=== PATIENT | female | born 1970 | race Caucasian/White ===

== ENCOUNTER → 2016-07-26 | Outpatient (CLI) | payer OTHER | LOC: FIMAGING 10:23 | PROVIDERS: ATTEND Midwife | DX: N83.201 Unspecified ovarian cyst, right side (principal); N92.6 Irregular menstruation, unspecified | CPT/HCPCS: 76856-PO ==

== ENCOUNTER 2016-08-22 13:17 | Emergency (ER) | payer OTHER ==
[2016-08-22] MEDS ORDERED: ASPIRIN 81 MG CHEWABLE TAB PO ONE (14:06)
--- NOTE | 2016-08-22 14:12 | CPEKG ---
Heart Rate: 80 RR Interval: 750 P-R Interval: 168 QRSD Interval: 84 QT Interval: 368 QTC Interval: 425 P Cannon Ball: 59 QRS Cannon Ball: 39 T Wave Cannon Ball: 46 EKG Severity - BORDERLINE ECG - EKG Impression: SINUS RHYTHM EKG Impression: PROBABLE LEFT ATRIAL ABNORMALITY Electronically Signed By: Ro Mejia 23-Aug-2016 00:27:41
[2016-08-22 14:22] VITALS: RESP 16; O2SAT 96
[2016-08-22 14:35] LABS: % IMMATURE GRANULYOCYTES 0.3 % (0.0-1.1); ABSOLUTE IMMATURE GRANULOCYTES 0.02 10^3/uL (0.00-0.10); ADD DIFF? NO; ADD MORPH? NO; ADD SCAN? NO; ATYPICAL LYMPHOCYTE FLAG 30 (0-99); FRAGMENT RBC FLAG 0 (0-99); HEMATOCRIT 32.9 % (38.0-47.0); HEMOGLOBIN 10.7 g/dL (12.6-16.3); LEFT SHIFT FLG 20 (0-99); LIPEMIA HEMOLYSIS FLAG 80 (0-99); MEAN CELL HEMOGLOBIN 28.1 pg (27.9-34.1); MEAN CELL HEMOGLOBIN CONCENTR. 32.5 g/dL (32.4-36.7); MEAN CELL VOLUME 86.4 fL (81.5-99.8); MEAN PLATELET VOLUME 9.4 fL (8.7-11.7); PLATELET CLUMPS FLAG 0 (0-99); PLATELET COUNT 292 10^3/uL (150-400); RED BLOOD CELL COUNT 3.81 10^6/uL (4.18-5.33); RED CELL DISTRIBUTION WIDTH 15.6 % (11.5-15.2)
[2016-08-22 14:47] LABS: ANION GAP 13 mEq/L (8-16); CALCIUM 9.3 mg/dL (8.5-10.4); CARBON DIOXIDE 22 mEq/l (22-31); CHLORIDE 107 mEq/L (97-110); CREATININE 1.2 mg/dL (0.6-1.0); GLOMERULAR FILTRATION RATE 49; GLUCOSE 75 mg/dL (70-100); POTASSIUM 4.2 mEq/L (3.5-5.2); SODIUM 142 mEq/L (134-144)
[2016-08-22 14:59] LABS: CREATINE KINASE-MB FRACTION 1.11 ng/mL (0-3.19); TROPONIN I < 0.012 ng/mL (0-0.034)
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
[2016-08-22 16:43] VITALS: BP 154/98; PULSE 76; TEMP 98.4
== END 2016-08-22 16:45 | disposition home or self-care (01) ==
DX: R07.89 Other chest pain (principal)

== ENCOUNTER → 2017-01-20 | Outpatient (CLI) | payer OTHER | LOC: BMCIMAGING 13:57 | PROVIDERS: ATTEND Midwife | DX: N83.201 Unspecified ovarian cyst, right side (principal) ==

== ENCOUNTER → 2017-01-28 | Outpatient (CLI) | payer OTHER | LOC: FIMAGING 07:35 | PROVIDERS: ATTEND Family Medicine | DX: Z12.31 Encounter for screening mammogram for malignant neoplasm of breast (principal); Z80.3 Family history of malignant neoplasm of breast | CPT/HCPCS: G0202 ==

== ENCOUNTER 2017-05-28 11:03 | Observation (INO) | payer OTHER ==
[~2017-05-28 11:03] MED LIST: ACETAMINOPHEN 500 MG TAB PO ONE; PHENAZOPYRIDINE HCL 200 MG TAB PO ONE
[2017-05-28] MEDS ORDERED: ACETAMINOPHEN 500 MG TAB PO ONE (11:36)
[2017-05-28] MEDS ORDERED: PHENAZOPYRIDINE HCL 200 MG TAB PO ONE (11:36)
[2017-05-28] MEDS ORDERED: ceFAZolin 2 GM/SWFI 2 GM/20 ML SYR IVP ONE (11:36)
[2017-05-28] MEDS ORDERED: GABAPENTIN 400 MG CAP PO ONE (11:36)
--- NOTE | 2017-05-28 12:08 | PDHPUP ---
History & Physical Update H&P update statement: This history and physical update is based on an assessment of the patient which was completed after admission or registration (within 24 hours), but prior to the surgery/procedure. H&P update: H&P reviewed & patient examined, no change in patient's condition since H&P completed
[2017-05-28] MEDS ORDERED: LR 1,000 ML IV ONE (12:24)
[2017-05-28] MEDS ORDERED: BUPIVACAINE/EPI 0.5% 30 ML SDV ONE (12:33)
[2017-05-28] MEDS ORDERED: MIDAZOLAM 2 MG/2 ML VIAL ONE (12:40)
[2017-05-28] MEDS ORDERED: PROPOFOL/EMULSION 500 MG/50 ML BOTTLE IV ONE (12:41)
[2017-05-28] MEDS ORDERED: fentaNYL 100 MCG/2 ML INJ ONE ×3 (12:41→15:24)
[2017-05-28] MEDS ORDERED: DEXAMETHASONE 4 MG/ML VIAL ONE (13:01)
[2017-05-28] MEDS ORDERED: ONDANSETRON 4 MG/2 ML VIAL ONE (13:01)
[2017-05-28] MEDS ORDERED: ROCURONIUM 50 MG/5 ML VIAL ONE ×2 (13:01→13:30)
[2017-05-28] MEDS ORDERED: KETOROLAC 30 MG/1 ML SDV ONE (13:01)
[2017-05-28] MEDS ORDERED: SUGAMMADEX SODIUM 200 MG/2 ML VIAL IVP ONE (13:01)
[2017-05-28] MEDS ORDERED: RANITIDINE 50 MG/2 ML VIAL ONE (13:01)
[2017-05-28] MEDS ORDERED: METOCLOPRAMIDE 10 MG/2 ML VIAL ONE (13:01)
[2017-05-28] MEDS ORDERED: LIDOCAINE 2% 5 ML SDV ONE (13:01)
--- NOTE | 2017-05-28 13:06 | PDANEPAE ---
ANE Past Medical History - Cardiovascular History Hx Hypertension: Yes Hx Arrhythmias: No Hx Chest Pain: No Hx Coronary Artery / Peripheral Vascular Disease: No Hx CHF / Valvular Disease: No Hx Palpitations: No - Pulmonary History Hx COPD: No Hx Asthma/Reactive Airway Disease: No Hx Recent Upper Respiratory Infection: No Hx Oxygen in Use at Home: No Hx Sleep Apnea: No Sleep Apnea Screening Result - Last Documented: Negative - Neurologic History Hx Cerebrovascular Accident: No Hx Seizures: No Hx Dementia: No - Endocrine History Hx Diabetes: No - Renal History Hx Renal Disorders: No - Liver History Hx Hepatic Disorders: No - Neurological & Psychiatric Hx Hx Neurological and Psychiatric Disorders: Yes Neurological / Psychiatric History Comment: sciatica, numbness right foot and pain. depression - Cancer History Hx Cancer: No - Congenital Disorder History Hx Congenital Disorders: No - GI History Hx Gastrointestinal Disorders: Yes Gastrointestinal History Comment: IBS with diarrhea - Other Health History Other Health History: none - Chronic Pain History Chronic Pain: Yes (lower back right leg, left knee) - Surgical History Prior Surgeries: 4 back surgeries. 5 knee surgeries ANE Review of Systems Review of Systems: - Exercise capacity METS (RN): 4 METS ANE Patient History - Allergies Allergies/Adverse Reactions: prednisone Allergy (Mild, Verified 05/14/17 14:34) Rash pregabalin [From Lyrica] Allergy (Mild, Verified 05/14/17 14:34) n/v - Home Medications Home Medications: oxyCODONE/APAP 5/325 [Percocet 5/325 (*)] 1 tab PO Q2D@21 PRN 08/22/16 [Last Taken 05/26/17] Amitriptyline HCl [Elavil 10 mg (*)] 40 mg PO HS 05/09/17 [Last Taken 05/27/17 20:00] Calcium Carbonate [Oyster Shell Calcium 500 mg (*)] 1,000 mg PO HS 05/09/17 [ Last Taken 05/21/17] Cyclobenzaprine [Flexeril 10 MG (*)] 10 mg PO Q2D@21 PRN 05/09/17 [Last Taken ] Deplin 15mg 15 mg PO DAILY 05/09/17 [Last Taken 05/27/17 08:00] Ibuprofen [Motrin (*)] 800 mg PO QID PRN 05/09/17 [Last Taken 05/27/17 11:59] Lisinopril [Zestril 10 mg (*)] 10 mg PO DAILY 05/09/17 [Last Taken 05/27/17 06: 00] Metoprolol Succinate Xr [Toprol Xl 25 mg (*)] 25 mg PO DAILY 05/09/17 [Last Taken 05/27/17 06:00] Multivitamins [Multivitamin (*)] 1 each PO DAILY 05/09/17 [Last Taken 05/21/17] [place]-3 Fatty Acids [Fish Oil 1000 mg (*)] 4,000 mg PO DAILY 05/09/17 [Last Taken 05/21/17] - NPO status NPO Since - Liquids (Date): 05/28/17 NPO Since - Liquids (Time): 09:10 NPO Since - Solids (Date): 05/27/17 NPO Since - Solids (Time): 11:59 - Smoking Hx Smoking Status: Never smoked - Family Anes Hx Family Hx Anesthesia Complications: none ANE Labs/Vital Signs - Vital Signs Blood Pressure: 136/87 Heart Rate: 91 Respiratory Rate: 16 O2 Sat (%): 99 Height: 167.64 cm Weight: 87.543 kg ANE Physical Exam - Airway Neck exam: FROM Mallampati Score: Class 2 Mouth exam: normal dental/mouth exam, poor dentition - Pulmonary Pulmonary: no respiratory distress, no rales or rhonchi, clear to auscultation - Cardiovascular Cardiovascular: regular rate and rhythym, no murmur, rub, or gallop, systolic murmur - ASA Status ASA Status: II ANE Anesthesia Plan Anesthesia Plan: general endotracheal anesthesia
[2017-05-28] MEDS ORDERED: ONDANSETRON 4 MG/2 ML VIAL IVP PRN (13:07)
[2017-05-28] MEDS ORDERED: LR 500 ML IV PRN (13:07)
[2017-05-28] MEDS ORDERED: PROMETHAZINE HCL 25 MG/ML INJ IVP PRN (13:07)
[2017-05-28] MEDS ORDERED: ALBUTEROL 3 ML DEYVIAL IH PRN (13:07)
[2017-05-28] MEDS ORDERED: NALOXONE HCL 0.4 MG/ML INJ IVP PRN (13:07)
[2017-05-28] MEDS ORDERED: MEPERIDINE 25 MG/ML SYR IVP PRN (13:07)
[2017-05-28] MEDS ORDERED: DEXAMETHASONE 4 MG/ML VIAL IVP PRN (13:07)
[2017-05-28] MEDS ORDERED: METOCLOPRAMIDE 10 MG/2 ML VIAL IVP PRN (13:07)
[2017-05-28] MEDS ORDERED: METOPROLOL TARTRATE 5 MG/5 ML INJ ONE (13:17)
[2017-05-28] MEDS ORDERED: ENALAPRILAT DIHYDRATE 1.25 MG/ML VIAL ONE (13:17)
[2017-05-28] MEDS ORDERED: PROPOFOL 200 MG/20 ML VIAL ONE (13:30)
[2017-05-28] MEDS ORDERED: LABETALOL HCL 5 MG/ML 20 ML MDV ONE (13:37)
[2017-05-28] MEDS ORDERED: ONDANSETRON DISINTEGRATING 4 MG TAB PO PRN (14:28)
--- NOTE | 2017-05-28 14:28 | POSTOPPROG ---
Post Op Note Date of Operation: 05/28/17 Surgeon: Shaun Crandall Copper Roller Handler Printing: Brynn Alcantar Anesthesiologist: Altagracia Anesthesia: GET(General Endotracheal) Pre-op Diagnosis: Menorrhagia, dysmenorrhea, endometriosis Post-op Diagnosis: same Procedure: Robotic hyst/BSO, US lig colpopexy, excise endo, cysto Findings: Endo post culdesac Inf/Abcess present in the surg proc area at time of surgery?: No EBL: Minimal Complications: None Specimen(s): uterus, bilat tubes and ovaries, peritoneum with endo
[2017-05-28] MEDS ORDERED: LR 1,000 ML IV SCH (14:30)
[2017-05-28] MEDS: fentaNYL 100 MCG/2 ML INJ IVP PRN ×5 (14:36→16:12)
[2017-05-28] MEDS ORDERED: DIAZEPAM 5 MG/ML 1 ML SYR ONE (14:38)
[2017-05-28] MEDS: DIAZEPAM 5 MG/ML 1 ML SYR IVP PRN ×2 (14:39→15:01)
--- NOTE | 2017-05-28 14:41 | POSTANESTH ---
Post Anesthetic Evaluation Cardiovascular Status: Normal, Stable Respiratory Status: Normal, Stable Level of Consciousness/Mental Status: Can Participate in Eval Pain Control: Adequate, Prn Tx Ordered Nausea/Vomiting Control: Adequate, Prn Tx Ordered Complications Possibly Related to Anesthesia: None Noted
--- NOTE | 2017-05-28 15:06 | GOP ---
[f rep st] OPERATIVE REPORT DATE OF OPERATION: 05/28/2017 SURGEON: Shaun Crandall MD FISH HATCHERY SUPERINTENDENT: Brynn Alcantar CFA. ANESTHESIA: General. PREOPERATIVE DIAGNOSIS: 1. Menorrhagia. 2. Dysmenorrhea. 3. Endometriosis. 4. Uterine prolapse. POSTOPERATIVE DIAGNOSIS: 1. Menorrhagia. 2. Dysmenorrhea. 3. Endometriosis. 4. Uterine prolapse. PROCEDURE PERFORMED: 1. Robotic-assisted total laparoscopic hysterectomy, bilateral salpingo-oophorectomy. 2. Bilateral ureterolysis. 3. Excision of endometriosis and posterior cul-de-sac and bilateral ovarian fossae. 4. Uterosacral ligament colpopexy. 5. Cystoscopy. FINDINGS: SPECIMENS: Uterus, tubes, ovaries, and endometriosis. ESTIMATED BLOOD LOSS: Scant. DESCRIPTION OF PROCEDURE: The patient was taken to the operating room where she was identified. Gen eral anesthesia was administered and found to be adequate. She was placed in the lithotomy position and prepared and draped in normal sterile fashion. A VCare uterine manipulator was placed into the e ndometrial cavity and sutured to the cervix. A Salas catheter was then placed. An infraumbilical incision was made with a scalpel. The Veress needle with CO2 gas flowing was advan bruce into the peritoneal cavity. The abdomen was then insufflated with carbon dioxide gas. The 12 mm trocar followed by the laparoscope were then inserted. The abdomen was unremarkable. Two lateral p orts were placed on the right and 1 on the left under direct visualization. She then was placed in T rendelenburg position and the da Megan robot docked on the left side. The instruments were then brou ght into the abdominal cavity under direct visualization. She was found to have endometriosis in the posterior cul-de-sac and both ovarian fossae. The left round ligament was divided. The anterior le af of the broad ligament was incised to the bifurcation of the left common iliac vessels. A windows was created in the medial leaf anterior to the ureter, which was easily visualized. The infundibulop elvic vessels were then cauterized and transected. The anterior lip of the broad ligament was then i ncised over the left uterine vessels and across the cervix. The bladder was gently dissected off the cervix and upper vagina. The left uterine vasculature was then cauterized and transected. The exac t same procedure was performed on the patient's right side. A circumferential colpotomy incision was then made with the hot cecil and the specimen removed through the vagina. The posterior cul-de-sac peritoneum from the distal rectum up to the vaginal cuff and laterally to include both uterosacral l igaments, was completely excised and removed through the vagina. A bilateral ureterolysis was requir ed to remove the endometriosis and the ovarian fossae. The peritoneum at the pelvic brims were incis ed. The ureters were gently dissected free from the pelvic brim all the way down to the bladder. On ce this was accomplished the overlying peritoneum and endometriosis was completely excised and also r emoved through the vagina. The vaginal cuff was then closed with a running suture of 0 V-Loc 180. A bilateral uterosacral ligament colpopexy was performed by attaching the lateral aspects of the vagin al cuff to the ipsilateral uterosacral ligaments near the sacrospinous ligament coccygeal complex. T he pelvis was then irrigated with sterile saline, and hemostasis was present. The robot was then und ocked. The fascia was closed with 0 Vicryl, skin with 4-0 Monocryl and surgical adhesive. Cystoscopy was then performed. Both ureters had vigorous jets of urine. There was no evidence of bl adder nor urethral injury seen. No pathology nor sutures were seen within the bladder. Anesthesia w as reversed. The patient taken the PACU awake, in stable condition. COMPLICATIONS: None. DISPOSITION: Patient stable to PACU. /[id number]/MODL
[2017-05-28] MEDS ORDERED: HYDROmorphONE/DILAUDID 2 MG/ML INJ ONE (15:31)
[2017-05-28] MEDS: HYDROmorphONE/DILAUDID 2 MG/ML INJ IVP PRN ×4 (15:52→22:05)
[2017-05-28] MEDS: OXYCODONE/APAP 5/325 TAB PO PRN (18:04)
[2017-05-28] MEDS: ONDANSETRON 4 MG/2 ML VIAL IVP PRN ×2 (18:44→22:49)
[2017-05-28] MEDS: KETOROLAC 30 MG/1 ML SDV IVP SCH (18:52)
[2017-05-28] MEDS: PROMETHAZINE HCL 25 MG/ML INJ IVP PRN (19:51)
[2017-05-28] MEDS ORDERED: AMITRIPTYLINE HCL 10 MG TAB PO SCH (21:00)
[2017-05-28] MEDS ORDERED: CYCLOBENZAPRINE 10 MG TAB PO PRN (21:00)
[2017-05-28] MEDS: SIMETHICONE 80 MG TAB CHEW PO SCH (21:58)
[2017-05-28] MEDS: DOCUSATE SODIUM 100 MG CAP PO SCH (22:56)
[2017-05-29] MEDS: HYDROmorphONE/DILAUDID 2 MG/ML INJ IVP PRN ×2 (00:11→02:12)
[2017-05-29] MEDS: SIMETHICONE 80 MG TAB CHEW PO SCH ×2 (00:28→10:57)
[2017-05-29] MEDS: KETOROLAC 30 MG/1 ML SDV IVP SCH ×3 (00:32→11:32)
[2017-05-29] MEDS: PROMETHAZINE HCL 25 MG/ML INJ IVP PRN (02:11)
[2017-05-29] MEDS: OXYCODONE/APAP 5/325 TAB PO PRN ×3 (04:38→10:06)
[2017-05-29 08:15] VITALS: BP 115/76
[2017-05-29] MEDS: DOCUSATE SODIUM 100 MG CAP PO SCH (08:20)
[2017-05-29] MEDS ORDERED: DEPLIN 15 MG PO SCH (09:00)
[2017-05-29] MEDS ORDERED: METOPROLOL SUCCINATE XR 25 MG TAB PO SCH (09:00)
[2017-05-29] MEDS ORDERED: LISINOPRIL 10 MG TAB PO SCH (09:00)
--- NOTE | 2017-05-29 12:55 | GDS ---
[f rep st] DISCHARGE SUMMARY DISCHARGE DIAGNOSES: 1. Dysmenorrhea. 2. Pelvic pain. 3. Endometriosis. PROCEDURES: 1. Robotic-assisted total laparoscopic hysterectomy and bilateral salpingo-oophorectomy. 2. Bilateral uterosacral ligament colpopexy. 3. Bilateral ureterolysis. 4. Excision of endometriosis. 5. Cystoscopy. HOSPITAL COURSE: The patient is a 47-year-old woman with painful menses and pelvic pain. She was ta sonia to the operating room on 05/28/2017, where she underwent the above-mentioned procedures without c omplications. Her postoperative course was relatively uneventful. The morning after surgery, she was ambulating, v oiding, and tolerating a general diet. She was discharged home on postoperative day #1 in good condi tion. Medications included Percocet and ibuprofen for pain. She had no complaints. Her abdomen was benign. Her hemoglobin was stable. She was discharged home with Percocet and ibuprofen for pain. She is to follow up in the office 2 weeks after discharge. /[id number]/MODL
== END 2017-05-29 12:15 | disposition home or self-care (01) ==
LOC: F3E 11:03 → FOB 16:00
PROVIDERS: ADMIT Obstetrics & Gynecology; ATTEND Obstetrics & Gynecology
DX: N80.3 Endometriosis of pelvic peritoneum (principal); N94.6 Dysmenorrhea, unspecified; N81.2 Incomplete uterovaginal prolapse; M54.41 Lumbago with sciatica, right side; F32.9 Major depressive disorder, single episode, unspecified
CPT/HCPCS: 57282; 58571; G0378; J0690; J1100; J1170; J1885; J2250; J2270; J2405; J2550; J2704; J2765; J2780; J3010; J3360

== ENCOUNTER → 2018-01-18 | Outpatient (CLI) | payer OTHER | LOC: SBRMNEURO 21:50 | PROVIDERS: ATTEND Student in an Organized Health Care Education/Training Program | DX: G47.33 Obstructive sleep apnea (adult) (pediatric) (principal) ==

== ENCOUNTER → 2018-01-29 | Outpatient (CLI) | payer OTHER | LOC: FIMAGING 10:55 | PROVIDERS: ATTEND Midwife | DX: Z12.31 Encounter for screening mammogram for malignant neoplasm of breast (principal); Z80.3 Family history of malignant neoplasm of breast ==

== ENCOUNTER 2018-04-15 23:03 | Emergency (ER) | payer OTHER ==
[2018-04-15] MEDS ORDERED: ONDANSETRON 4 MG/2 ML VIAL IVP ONE (23:35)
[2018-04-15] MEDS ORDERED: NS 1,000 ML IV ONE (23:35)
--- NOTE | 2018-04-15 23:39 | EDPHY ---
H & P Stated Complaint: lower abd pain with vomiting and diarrhea Time Seen by Provider: 04/15/18 23:23 HPI/ROS: Chief Complaint: Nausea, vomiting, diarrhea, abdominal pain HPI: 47-year-old woman who is been having persistent vomiting since she had a trip to [place] at the end of February. She had been on Chloroquin for malaria prophylaxis. She has seen a back order clerk who is performed an upper GI and found that she was not having complete gastric emptying but no other findings. She is also followed up with Infectious Disease who is attributing her vomiting to the chloroquine. He told her that this could persist for several weeks while it is still in her system.. Last took chloroquin 4 weeks ago. Vomiting is persisted. Tonight she developed worsening nausea vomiting, multiple episodes which began with vomiting what appeared to be her entire lunch and then multiple suicide bilious vomiting. She has also had multiple episodes of diarrhea. No blood or coffee-grounds in her emesis, no dark tarry stools. Patient has also had associated lower bilateral abdominal pain, at worst 9/10, currently 6/10. No fevers or chills. No shortness of breath. There are no aggravating or alleviating factors. She has not had any abdominal pain associated with prior to this. ROS: 10 systems were reviewed and were negative except those elements noted in the HPI. PMH: Hypertension, hysterectomy, time to time a back surgery, knee surgery Social History: No smoking, no alcohol, no recreational drug use Family History: non-contributory Physical Exam: Gen: Awake, Alert, No Distress HEENT: Nose: no rhinorrhea Eyes: PERRLA, EOMI Mouth: Moist mucosa Neck: Supple, no JVD Chest: nontender, lungs clear to auscultation Heart: S1, S2 normal, no murmur Abd: Soft, diffuse abdominal tenderness, no guarding Back: no CVA tenderness, no midline tenderness Ext: no edema, non-tender Skin: no rash Neuro: CN II-XII intact, Sensation grossly intact, Strength 5/5 in bilateral upper and lower extremities - Personal History LMP (Females 10-55): Hysterectomy Current Tetanus/Diphtheria Vaccine: Yes Current Tetanus Diphtheria and Acellular Pertussis (TDAP): Yes - Medical/Surgical History Hx Asthma: No Hx Chronic Respiratory Disease: No Hx Diabetes: No Hx Cardiac Disease: No Hx Renal Disease: No Hx Cirrhosis: No Hx Alcoholism: No Hx HIV/AIDS: No Hx Splenectomy or Spleen Trauma: No Other PMH: chronic back pain, surgs on back, hysterectomy, bilat knee, c- sections, HTN - Social History Smoking Status: Never smoked Constitutional: Initial Vital Signs Temperature (C) 36.5 C 04/15/18 23:05 Heart Rate 102 H 04/15/18 23:05 Respiratory Rate 16 04/15/18 23:05 Blood Pressure 122/80 H 04/15/18 23:05 O2 Sat (%) 98 04/15/18 23:05 O2 Delivery Mode Room Air Allergies/Adverse Reactions: prednisone Allergy (Mild, Verified 04/15/18 23:09) Rash pregabalin [From Lyrica] Allergy (Mild, Verified 04/15/18 23:09) n/v Home Medications: Medication Instructions Recorded oxyCODONE/APAP 5/325 [Percocet 1 tab PO Q2D@21 PRN 08/22/16 5/325 (*)] Cyclobenzaprine [Flexeril 10 MG 10 mg PO Q2D@21 PRN 05/09/17 (*)] Lisinopril [Zestril 10 mg (*)] 10 mg PO DAILY 05/09/17 Multivitamins [Multivitamin (*)] 1 each PO DAILY 05/09/17 Leslie-3 Fatty Acids [Fish Oil 1000 4,000 mg PO DAILY 05/09/17 mg (*)] oxyCODONE/APAP 5/325 [Percocet 1 - 2 tab PO Q4HRS PRN #20 tab 05/29/17 5/325 (*)] Belbuca 04/15/18 Cardizem 04/15/18 Estradiol 04/15/18 Metoclopramide 04/15/18 OXcarbazepine 04/15/18 Stool Softener 04/15/18 Ciprofloxacin [Cipro] 500 mg PO BID #14 tab 04/16/18 Medical Decision Making - Diagnostics Imaging Results: CT scan of the abdomen pelvis shows wall thickening with adjacent fat stranding throughout the colon concerning for an infectious or inflammatory colitis. No evidence of a bowel obstruction. Study interpreted by Dr. Parikh, draft Radiology. ED Course/Re-evaluation: 47-year-old woman presenting with nausea vomiting and diarrhea and abdominal pain. CT scan consistent with colitis. She has had persistent nausea vomiting for the last several weeks since her trip is. I have sent a stool culture. Patient is improved after IV fluids and medicines here. She does not wish to stay in the hospital. Given her symptoms, travel and persistent nausea she has had over the last few weeks I am inclined to treat her for her colitis with ciprofloxacin. Will give her 1st dose here. She will certainly follow up with her back order clerk and primary care physician. She will return for any concerns. Return precautions have been provided. Patient understands. - Data Points Laboratory Results: Laboratory Results 04/15/18 23:30 04/15/18 23:30 04/16/18 04/15/18 04/15/18 00:40 23:30 23:30 WBC 12.82 10^3/uL H 10^3/uL (3.80-9.50) RBC 4.65 10^6/uL 10^6/uL (4.18-5.33) Hgb 14.0 g/dL g/dL (12.6-16.3) Hct 42.2 % % (38.0-47.0) MCV 90.8 fL fL (81.5-99.8) MCH 30.1 pg pg (27.9-34.1) MCHC 33.2 g/dL g/dL (32.4-36.7) RDW 13.3 % % (11.5-15.2) Plt Count 266 10^3/uL 10^3/uL (150-400) MPV 9.3 fL fL (8.7-11.7) Neut % (Auto) 85.0 % H % (39.3-74.2) Lymph % (Auto) 11.5 % L % (15.0-45.0) [place] % (Auto) 2.2 % L % (4.5-13.0) Eos % (Auto) 0.7 % % (0.6-7.6) Baso % (Auto) 0.4 % % (0.3-1.7) Nucleat RBC Rel Count 0.0 % % (0.0-0.2) Absolute Neuts (auto) 10.91 10^3/uL H 10^3/uL (1.70-6.50) Absolute Lymphs (auto) 1.47 10^3/uL 10^3/uL (1.00-3.00) Absolute Monos (auto) 0.28 10^3/uL L 10^3/uL (0.30-0.80) Absolute Eos (auto) 0.09 10^3/uL 10^3/uL (0.03-0.40) Absolute Basos (auto) 0.05 10^3/uL 10^3/uL (0.02-0.10) Absolute Nucleated RBC 0.00 10^3/uL 10^3/uL (0-0.01) Immature Gran % 0.2 % % (0.0-1.1) Immature Gran # 0.02 10^3/uL 10^3/uL (0.00-0.10) Sodium 138 mEq/L mEq/L (135-145) Potassium 4.3 mEq/L mEq/L (3.5-5.2) Chloride 104 mEq/L mEq/L (97-110) Carbon Dioxide 23 mEq/l mEq/l (22-31) Anion Gap 11 mEq/L mEq/L (6-14) BUN 15 mg/dL mg/dL (7-23) Creatinine 0.9 mg/dL mg/dL (0.6-1.0) Estimated GFR > 60 Glucose 112 mg/dL H mg/dL (70-100) Calcium 9.7 mg/dL mg/dL (8.5-10.4) Total Bilirubin 0.4 mg/dL mg/dL (0.1-1.4) AST 34 IU/L IU/L (14-46) ALT 38 IU/L IU/L (9-52) Alkaline Phosphatase 90 IU/L IU/L (38-126) Total Protein 6.9 g/dL g/dL (6.3-8.2) Albumin 4.3 g/dL g/dL (3.5-5.0) Lipase 359 IU/L H IU/L (23-300) Urine Color YELLOW Urine Appearance CLEAR Urine pH 5.0 (5.0-7.5) Ur Specific Mark 1.025 (1.002-1.030) Urine Protein NEGATIVE (NEGATIVE) Urine Ketones NEGATIVE (NEGATIVE) Urine Blood NEGATIVE (NEGATIVE) Urine Nitrate NEGATIVE (NEGATIVE) Urine Bilirubin NEGATIVE (NEGATIVE) Urine Urobilinogen NEGATIVE EU EU (0.2-1.0) Ur Leukocyte Esterase NEGATIVE (NEGATIVE) Urine Glucose NEGATIVE (NEGATIVE) Medications Given: Discontinued Medications Ciprofloxacin (Cipro) 500 mg PO EDNOW ONE PRN Reason: Protocol Stop: 04/16/18 02:15 Last Admin: 04/16/18 02:20 Dose: 500 mg Sodium Chloride (Ns) 1,000 mls @ 0 mls/hr IV ONCE ONE; Wide Open PRN Reason: Protocol Stop: 04/15/18 23:36 Last Admin: 04/15/18 23:39 Dose: 1,000 mls Ondansetron HCl (Zofran) 4 mg IVP EDNOW ONE Stop: 04/15/18 23:36 Last Admin: 04/15/18 23:39 Dose: 4 mg Departure - Departure Disposition: Home, Routine, Self-Care Clinical Impression: Colitis Condition: Good Instructions: Colitis (ED) Additional Instructions: Follow up with her back order clerk in 1-2 days for further evaluation. Return to the emergency department for uncontrolled nausea vomiting, uncontrolled diarrhea, worsening pain, fevers or chills, or any other concerns. Referrals: Kimberli Spain MD [Primary Care Provider] - As per Instructions Dwayne David MD [[facility] [place]] - As per Instructions Prescriptions: Ciprofloxacin [Cipro] 500 mg PO BID #14 tab
[2018-04-15 23:41] LABS: PLATELET COUNT 266 10^3/uL (150-400)
[2018-04-16] MEDS ORDERED: IOPAMIDOL (ISOVUE-300) 100 ML BTL ONE (00:02)
[2018-04-16 01:16] VITALS: BP 115/72
[2018-04-16] MEDS ORDERED: CIPROFLOXACIN 500 MG TAB PO ONE (02:14)
== END 2018-04-16 02:21 | disposition home or self-care (01) ==
DX: K52.9 Noninfective gastroenteritis and colitis, unspecified (principal); E86.9 Volume depletion, unspecified; I10 Essential (primary) hypertension
CPT/HCPCS: 96374; J2405; Q9967